=== PATIENT | female | born 1975 | race Caucasian/White ===

== ENCOUNTER 2024-04-04 06:28 | Day surgery (SDC) | payer OTHER ==
[2024-04-04] MEDS ORDERED: Dexamethasone 4 MG/ML SDV ONE ×2 (07:02→07:13)
[2024-04-04] MEDS ORDERED: Neostigmine Methylsulfate 10 MG/10 ML MDV ONE ×2 (07:02→07:13)
[2024-04-04] MEDS ORDERED: Ondansetron 4 MG/2 ML SDV ONE ×2 (07:02→07:13)
[2024-04-04] MEDS ORDERED: Rocuronium 50 MG/5 ML Vial ONE ×2 (07:02→07:13)
[2024-04-04] MEDS ORDERED: Propofol 200 MG/20 ML SDV ONE ×2 (07:02→07:13)
[2024-04-04] MEDS ORDERED: Succinylcholine 200 MG/10 ML MDV ONE (07:02)
[2024-04-04] MEDS ORDERED: fentaNYL 250 MCG/5 ML SDV ONE ×2 (07:02→07:12)
[2024-04-04] MEDS ORDERED: Glycopyrrolate 0.2 MG/ML 5 ML MDV ONE ×2 (07:02→07:13)
[2024-04-04 07:03] LABS: HEMATOCRIT 39.2 % (34.3-46.0); HEMOGLOBIN 13.4 g/dL (11.2-15.5); MEAN CORPUSCULAR HEMOGLOBIN 28.9 pg (31.6-35.5); MEAN CORPUSCULAR HGB CONC 34.2 g/dL (31.6-35.5); MEAN CORPUSCULAR VOLUME 84.7 fL (81.4-99.0); RED BLOOD CELL COUNT 4.63 M/uL (3.77-5.24); WHITE BLOOD CELL COUNT,WBC 5.3 K/uL (3.2-11.0)
[2024-04-04 07:25] LABS: A/G RATIO 1.1 (1.2-2.2); ALANINE AMINOTRANSFERASE,ALT 27 U/L (12-78); ALBUMIN 3.9 g/dL (3.4-5.0); ALKALINE PHOSPHATASE 95 U/L (46-116); ANION GAP 11.8 mmol/L (5.0-14.0); ASPARTATE AMNIOTRANSFERASE,AST 17 U/L (15-37); BILIRUBIN TOTAL 0.6 mg/dL (0.2-1.0); BLOOD UREA NITROGEN,BUN 15 mg/dL (7-18); CALCIUM 9.3 mg/dL (8.5-10.1); CARBON DIOXIDE,CO2 26 mmol/L (21-32); CHLORIDE,CL 102 mmol/L (100-108); CREATININE 0.9 mg/dL (0.6-1.0); EST CRCL DRUG DOSING (CG) 69.53 mL/min; ESTIMATED GFR 79 mL/min (>60); GLUCOSE RANDOM 104 mg/dL (74-106); POTASSIUM,K 4.1 mmol/L (3.6-5.2); PROTEIN TOTAL,TP 7.5 g/dL (6.4-8.2); SODIUM,NA 140 mmol/L (140-148)
[2024-04-04] MEDS: Scopalamine 1mg/3day Transdermal Patch TOP ONE (07:28)
[2024-04-04] MEDS: Nozin Nasal Sanitizer NASBOTH ONE (07:29)
[2024-04-04] MEDS: Lactated Ringers 1,000 ML IV SCH (07:32)
[2024-04-04] MEDS: ceFAZolin 2 GM in Premix Bag 1 BAG IV ONE (08:00)
[2024-04-04] MEDS ORDERED: Ketorolac 30 MG/ML SDV ONE (08:18)
[2024-04-04] MEDS: Bupivacaine 0.5% 30 ML SDV ONE (08:36)
[2024-04-04] MEDS ORDERED: fentaNYL 100 MCG/2 ML SDV ONE (09:01)
== END 2024-04-04 11:06 | disposition home or self-care (01) ==
LOC: JP.SDS 06:28
PROVIDERS: ATTEND Specialist
DX: S83.272A Complex tear of lateral meniscus, current injury, left knee, initial encounter (principal); E66.9 Obesity, unspecified
CPT/HCPCS: 01400; 29882; 36415; 80053; 85027; A9270; C1713; J0665; J0690; J1100; J1596; J1885; J2405; J2704; J2710; J3010; J7120; J0330; J3490